=== PATIENT | male | born 1930 | race Caucasian/White ===

== ENCOUNTER 2016-11-27 21:36 | Inpatient (IN) | payer MEDICARE ==
--- NOTE | ~2016-11-27 | HP ---
History And Physical [place] [id number] [facility] [place]. [address] NAME: GLORIA LARA : [birth year] STATUS : ADM IN [facility]#: [id number] AGE: 86 ADM/REG DATE : 11/27/16 MR#: [id number] REPORT SERV DATE: 11/28/16 DICTATED BY: FINA CRAFT DATE: 11/28/16 REPORT STATUS : Draft TRANSCRIBED BY: MODL DATE: 11/28/16 DATE OF ADMISSION: 11/27/2016 CHIEF COMPLAINT: An 86-year-old male presenting with lethargy and cough. HISTORY OF PRESENT ILLNESS: The patient's history was obtained through careful interview with the patient, , son, and daughter coupled with review of [facility] medical records. The patient for about two weeks has had increasing lethargy, fatigue, confusion. He has become gradually more and more incoherent and have difficulty expressing himself with irritability. For the last week he has been losing bowel and bladder continence, and he is too weak to get up to use the bathroom or to ambulate on his own. He has been completely dependent for activities of daily living causing considerable stress on his family. Over these last two weeks he has had a cough that is productive, but the sputum has not been visualized by the family. There has been chest congestion, shortness of breath characterized by dyspnea on the least amount of exertion. No fevers or chills. The patient has had nausea constantly with two episodes of vomiting over the last week. He has generally kept a good appetite until the last 24 hours when he has had really no food intake at all. He has chronic neck arthritis seemingly worsened by this illness. He is complaining of pain, but unfortunately has been unable to localize the pain or describe its quality or severity to his family or to myself tonight. REVIEW OF SYSTEMS: Otherwise 14-point review of systems was obtained and was negative, although could question validity in light of the patient's inability to answer for himself. PAST MEDICAL HISTORY: 1. Coronary artery disease, status post CABG. 2. Aortic valve replacement with a tissue valve. 3. Chronic kidney disease, stage 3. Baseline creatinine of 1.3 to 1.8. 4. Diabetes. Hemoglobin A1c of 6.7 in September 2016. 5. Elevated cholesterol. 6. Hypertension. 7. Right lung granuloma. 8. Atrial fibrillation. 9. Nephrolithiasis. 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 11.Alzheimer's dementia. History And Physical [address] [address] NAME: GLORIA LARA : [birth year] STATUS : ADM IN [facility]#: [id number] AGE: 86 ADM/REG DATE : 11/27/16 MR#: [id number] REPORT SERV DATE: 11/28/16 DICTATED BY: FINA CRAFT DATE: 11/28/16 REPORT STATUS : Draft TRANSCRIBED BY: VALERY DATE: 11/28/16 PAST SURGICAL HISTORY: 1. Cholecystectomy. 2. Appendectomy. 3. CABG. 4. Aortic valve replacement in 2006 with tissue valve. 5. Right rotator cuff repair. 6. Toe repair. 7. Left foot surgery. 8. Left tear duct surgery. ALLERGIES: TO CODEINE AND PENICILLIN. SOCIAL HISTORY: Quit smoking in his 20s. No alcohol use. He has been to his for 62 years. 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 He now lives in [place], [place]. He has sitters that stay with him occasionally. He has a supportive son and daughter who live locally. No alcohol use. FAMILY HISTORY: Diabetes and coronary artery disease. CURRENT MEDICATIONS: 1. Dulcolax at bedtime. 2. Tums. 3. Pradaxa 75 mg p.o. b.i.d. 4. Aricept 10 mg p.o. b.i.d. 5. Cozaar 12.5 mg p.o. daily. 6. Namenda 10 mg p.o. b.i.d. 7. Seroquel 25 mg p.o. b.i.d. 8. Zoloft 25 mg p.o. b.i.d. PHYSICAL EXAMINATION: VITAL SIGNS: Temperature 98.5, pulse 121, blood pressure 118/90, respiratory rate 28, and O2 saturation 95% on room air. GENERAL: A toxic and very ill appearing male, but in no severe distress at this time. HEENT: Pupils equal, round, and reactive to light. No conjunctival pallor. No scleral icterus. Nares are patent. Oropharynx is clear of obstruction. Dry mucous membranes. NECK: Trachea midline. No thyromegaly. LYMPH: No cervical lymphadenopathy. No supraclavicular lymphadenopathy. RESPIRATORY: The patient has harsh rhonchi on examination that predominate. He will not participate in testing for egophony and he has crackles at the base of his lungs that I believe are more consistent with atelectasis changes as he does not seem to breathe very deeply on exam. He has no wheezes. No wet rales. He has a labored respiratory effort though. CARDIOVASCULAR: Tachycardic. Regular rhythm. No murmurs, rubs, or gallops. No current extremity edema is appreciated. ABDOMEN: Soft, nontender, and nondistended. Normal bowel sounds auscultated throughout. No hepatosplenomegaly. History And Physical [address] [address] NAME: GLORIA LARA : [birth year] STATUS : ADM IN [facility]#: [id number] AGE: 86 ADM/REG DATE : 11/27/16 MR#: [id number] REPORT SERV DATE: 11/28/16 DICTATED BY: FINA CRAFT DATE: 11/28/16 REPORT STATUS : Draft TRANSCRIBED BY: VALERY DATE: 11/28/16 DERMATOLOGIC: Warm and dry extremities. No pallor. No cyanosis. PSYCHIATRIC: A flat affect and irritable mood. He is alert, but often becomes quite lethargic. He does arouse easily to vocal stimuli, and he is disoriented x3 at this time. LABORATORY DATA: White blood cell count 11.7, hemoglobin 11, hematocrit 31, and platelets 200. Sodium 134, potassium 3.4, chloride 95, bicarb 29, BUN 27, creatinine 1.24, and glucose 141. Troponin negative. INR 2.0. Urine drug screen negative. Urinalysis negative for infection. STUDIES: 1. Chest x-ray by my own evaluation shows a fairly dense left lower lung pneumonia, a chronic right granuloma compared to old x-ray. 2. CT scan of the brain shows atrophy changes, but nothing acute. ASSESSMENT AND PLAN: 1. Sepsis with a white blood cell count of approximately 12, tachycardia, tachypnea, and an encephalopathy and evidence of pneumonia. Check blood cultures. Check lactic acid. Place on IV antibiotics. 2. Pneumonia. Check swallow studies to rule out aspiration risk. Check blood cultures. Place on IV antibiotics. 3. Functional paraplegia, now completely dependent for activities of daily living. Obtain a physical therapy evaluation and a case management evaluation as the patient may need to disposition to rehab. 4. Aortic valve replacement. Check an echocardiogram. 5. Chronic kidney disease, stage 3. 6. Diabetes. Hemoglobin A1c of 6.7. Place on sliding scale insulin. 7. Alzheimer's dementia. 8. Chronic atrial fibrillation, on Pradaxa. Check telemetry. KPL/MODL Fina Craft M.D. / [id number] CC: Karla Ramírez M.D.
--- NOTE | ~2016-11-27 | IDS ---
Interim Discharge Summary [facility] [address] [place]. [address] NAME: GLORIA LARA : [birth year] STATUS : ADM IN [facility]#: [id number] AGE: 86 ADM/REG DATE : 11/27/16 MR#: [id number] REPORT SERV DATE: 12/01/16 DICTATED BY: JOANNE MERINO DATE: 12/01/16 REPORT STATUS : Draft TRANSCRIBED BY: MODL DATE: 12/01/16 ADMISSION DATE: 11/27/2016 DISCHARGE DATE: PRINCIPAL DIAGNOSIS: Pneumonia, left lower lobe. SECONDARY DIAGNOSES: 1. Dysphagia. 2. Advanced dementia with febrile encephalopathy. 3. Recurrent fever. 4. Type 2 diabetes. 5. Generalized weakness. 6. Chronic kidney disease. 7. Atrial fibrillation. HISTORY OF PRESENT ILLNESS: Please see Dr. Conklin's dictation of 11/27/2016. HOSPITAL COURSE: Admitted with pneumonia and concern for systemic inflammatory response syndrome. Left lower lobe abnormality was noted. No other source was identified. Antibiotics were given. The patient actually responded well. He was more participatory in physical therapy, waking up, communicative, eating. However, on the sales promotion representative of 11/22/2016, the patient again became febrile and confused spiking high fevers and with drenching sweats. The son said that last night the patient had had increased agitation and gurgly sounds of his breathing. There was a concern this patient may have been aspirating even secretions with a resultant re-infection in the setting of ongoing antibiotic therapy; this would be a very grave prognosis. Urine cultures meanwhile were negative, no diarrhea had occurred. A modified barium swallow test was planned for 12/02/2016 but anticipating a high probability of failure and a hospice referral as a result. In either case, [facility] facility was anticipated, discharge plan per Dr. Vivar who will assume care starting tomorrow. ROWDY/VALERY Joanne Merino M.D. / [id number] CC: Karla Ramírez M.D.
--- NOTE | ~2016-11-27 | DS ---
Discharge Summary [place] [address] [place]. [address] NAME: GLORIA LARA : [birth year] STATUS : DIS IN PAT#: [id number] AGE: 86 ADM/REG DATE : 11/27/16 MR#: [id number] REPORT SERV DATE: 12/11/16 DICTATED BY: JESÚS MOREL DATE: 12/10/16 REPORT STATUS : Draft TRANSCRIBED BY: MODL DATE: 12/10/16 ADMISSION DATE: 11/27/2016 DISCHARGE DATE: 12/09/2016 REASON FOR ADMISSION: This is an 86-year-old male, who presented with lethargy and cough and chest x-ray. In ER, it had showed left lower lung pneumonia. DISCHARGE DIAGNOSES: 1. Severe sepsis due to pneumonia. 2. Chronic kidney disease. 3. Diabetes. 4. Atrial fibrillation. 5. Dysphagia, resolved. HOSPITAL COURSE: Please see discharge H and P from Dr. Esteban Vivar on 12/05/2016 to 12/09/2016 for full details on hospital stay. The patient's discharge arrangements to nursing home facility were completed on the 12/09/2016, and the patient was discharged. DISCHARGE CONDITION: Stable. DISCHARGE MEDICATIONS: 1. Allopurinol 100 mg p.o. daily. 2. Dulcolax 5 mg p.o. q.h.s. 3. Carvedilol 3.125 mg p.o. b.i.d. 4. Pradaxa 75 mg p.o. b.i.d. 5. Donepezil 10 mg p.o. b.i.d. 6. Florastor one capsule p.o. b.i.d. 7. Losartan 12.5 mg p.o. daily. 8. Namenda 10 mg p.o. b.i.d. 9. Seroquel 100 mg p.o. q.h.s. 10.Zoloft 25 mg p.o. b.i.d. 11.Spiriva 18 mcg capsule inhaled daily. DISCHARGE PLAN: The patient is discharged to nursing home facility. Follow up with primary care, Dr. Dao Sears, after rehab. QUENTIN/JENNIFERL Jesús Morel APN / [id number] CC: Discharge Summary [address] [place] [address] NAME: GLORIA LARA : [birth year] STATUS : DIS IN PAT#: [id number] AGE: 86 ADM/REG DATE : 11/27/16 MR#: [id number] REPORT SERV DATE: 12/11/16 DICTATED BY: JESÚS MOREL DATE: 12/10/16 REPORT STATUS : Draft TRANSCRIBED BY: MODL DATE: 12/10/16 Karla Ramírez M.D.
--- NOTE | ~2016-11-27 | DS ---
Discharge Summary [facility] [address] [facility] [place]. [address] NAME: GLORIA LARA : [birth year] STATUS : ADM IN PAT#: [id number] AGE: 86 ADM/REG DATE : 11/27/16 MR#: [id number] REPORT SERV DATE: 12/05/16 DICTATED BY: PHOEBE MAHMOOD DATE: 12/04/16 REPORT STATUS : Draft TRANSCRIBED BY: MODL DATE: 12/04/16 ADMISSION DATE: 11/27/2016 DISCHARGE DATE: 12/04/2016 HOSPITAL COURSE: This is an unfortunate 86-year-old male, known history of dementia, does not know what year it is, at baseline; history of CAD with CABG; aortic valve replacement, tissue biopsy, CKD, baseline about 1.3 to 1.8; diabetes, A1c 6.7; hyperlipidemia; hypertension; right lung granuloma; AFib; nephrolithiasis; Rodriguez's palsy; Alzheimer's dementia; cholecystectomy; appendectomy; CABG; AVR, 2006, tissue valve; rotator cuff repair; toe repair; left foot surgery. Patient has known history of smoking very minimally, came in, productive cough, nausea with emesis, sepsis severe due to hypoxic respiratory failure, did quite well, but then was determined to be dysphagic. The patient as a result had modified barium swallow again on the showed mechanical soft diet. Recommendation, gravy and nectar thickened liquids, deep penetration with thin liquids at the level of vocal folds, prolonged chewing, at risk for aspiration, but is able to protect airway. Needs oral care throughout the day, we will recommend as an outpatient. Patient's quality life is very poor. Had a fever spike despite being on Rocephin and azithromcin, switched over for better tamiko coverage with Levaquin, and tobramycin was added per Dr. Varma and take him off tobramycin and has done well since clinically. Off of oxygen now. White count improved. Patient's initial modified barium swallow study did not show any overt symptoms of aspiration, but very lethargic. Unclear of the accuracy of the test. Patient is amenable for discharge. Family would like patient before going to hospice to give every effort to rehabilitative facility; if does not, could consider possible hospice. Patient was significantly at one time sedated with delirium and backed off his Seroquel dosing. May have some restless legs syndrome, would want to guard against any pramipexole, ropinirole, associated sedation as a result. We will rule out for any gout. Give allopurinol at this time. If it were to worsen, consider possible steroids that may have an encephalopathic risk and possible x-ray to explain to the patient's family regarding this. Blood cultures, no growth to date despite his fever. Hopefully, he will be going to the facility today. He has failure to thrive as an outpatient given his very poor quality of life and advanced age of 86, comorbidities, consider possible hospice. Did a CT and it showed some moderate neural foraminal impingement at L4-L5. Family did not seem interested in any surgical intervention. No significant clinical manifestations that I am aware of nor were explained or presented to me. DISCHARGE MEDICATIONS: Include Dulcolax 5 p.o. at bedtime; Pradaxa 75 p.o. b.i.d.; donepezil 10 p.o. b.i.d.; losartan 12.5 p.o. daily, hold if less than 100 systolic; Namenda 10 p.o. b.i.d.; Seroquel 25 p.o. q.a.m., 75 p.o. at bedtime; Florastor one capsule p.o. b.i.d. for duration of antibiotic; Zoloft 25 p.o. b.i.d.; Spiriva 18 mcg capsule inhaled daily; Levaquin 750 p.o. daily for seven more days; allopurinol 100 p.o. daily with assistance going to the restroom and moving; carvedilol 3.125 p.o. b.i.d., hold if systolic less than 100. Discharge Summary [address] [address] NAME: GLORIA LARA : [birth year] STATUS : ADM IN [facility]#: [id number] AGE: 86 ADM/REG DATE : 11/27/16 MR#: [id number] REPORT SERV DATE: 12/05/16 DICTATED BY: PHOEBE MAHMOOD DATE: 12/04/16 REPORT STATUS : Draft TRANSCRIBED BY: MODL DATE: 12/04/16 CONSULTS: None. PROCEDURES: None. DISCHARGE DIAGNOSES: 1. Severe sepsis due to pneumonia. 2. Chronic kidney disease. 3. Diabetes. 4. Atrial fibrillation history. 5. Dysphagia, now improved. I would consider patient, given significant fall risk, not allowing for any full-dose Pradaxa, just continue Pradaxa dosing 75 b.i.d. All questions were answered. It took over 30 minutes to do. CHRISTIAN/VALERY Phoebe Mahmood DO / [id number] CC: DO Dao Shelton M.D.
--- NOTE | ~2016-11-27 | DS ---
Discharge Summary [address] [address] [place]. [address] NAME: GLORIA LARA : [birth year] STATUS : ADM IN PAT#: [id number] AGE: 86 ADM/REG DATE : 11/27/16 MR#: [id number] REPORT SERV DATE: 12/09/16 DICTATED BY: PHOEBE MAHMOOD DATE: 12/08/16 REPORT STATUS : Draft TRANSCRIBED BY: MODL DATE: 12/08/16 ADMISSION DATE: 11/27/2016 DISCHARGE DATE: ADDENDUM: The patient had delay in discharge due to family changing mind regarding destination of facility, would now like to go to [facility] over the weekend. I am trying to facilitate. New DC MAR will include: 1. Allopurinol 100 p.o. daily. 2. Dulcolax 5 p.o. at bedtime. 3. Carvedilol 3.125 p.o. b.i.d. 4. Pradaxa 75 p.o. b.i.d. Lower dose because of fall risk. Consider possible aspirin and Plavix as an outpatient. 5. Donepezil 10 p.o. b.i.d. 6. Levaquin 750 p.o. daily just for three more days. 7. Florastor 1 capsule p.o. b.i.d. for duration of antibiotic. 8. Losartan 12.5 p.o. daily. 9. Namenda 10 p.o. b.i.d. 10.Seroquel 100 p.o. at bedtime. 11.Zoloft 25 p.o. b.i.d. 12.Spiriva 18 mcg capsule inhaled daily. Assistance with moving. If has failure to thrive as an outpatient, consider hospice. The son who is the only son with limited family support is aware. See prior followup discharge instructions. All questions were answered. It took over 30 minutes in total to do. CHRISTIAN/VALERY Phoebe Mahmood DO / [id number] CC: DO Dao Shelton M.D.
[2016-11-27 20:42] LABS: ASCORBIC ACID (UR NOT ORDER) NEG (NEG); BILIRUBIN, URINE NEGATIVE (NEG); ER URINALYSIS TAT 0 Hrs 13 Mins; KETONE, URINE NEGATIVE (NEG); LEUKOCYTE ESTERASE(NOT OR NEG (NEG); NITRITE (URINE) NEG (NEG); WBC (NOT ORDERED) (RFLEX) 1 (0-5)
[2016-11-27 21:27] LABS: BASOPHILS 0.1 %; BASOPHILS ABSOLUTE 0.01 10/3/uL (0.0-0.16); EOSINOPHILS 0.3 %; EOSINOPHILS ABSOLUTE 0.04 10/3/uL (0.0-0.53); HEMOGLOBIN 10.9 g/dL (13.6-17.8); IMMATURE GRANULOCYTES 0.3 %; IMMATURE GRANULOCYTES ABSOLUTE 0.04 10/3/uL (0.0-0.11); LYMPHOCYTES 10.4 %; LYMPHOCYTES ABSOLUTE 1.22 10/3/uL (0.67-4.30); MEAN CORPUSCULAR HEMOGLOB 32.8 pg (26.0-34.0); MEAN CORPUSCULAR VOLUME 93.7 fL (80-100); MEAN PLATELET VOLUME 9.1 fL (9.2-13.0); MONOCYTES ABSOLUTE 1.41 10/3/uL (0.21-1.20); NEUTROPHILS 76.9 %; PLATELET COUNT 200 10/3/uL (150-400); RBC DISTRIBUTION WIDTH 12.1 % (12.0-16.0); RED CELL COUNT 3.32 10/6/uL (4.7-6.1)
[2016-11-27 21:28] LABS: HEMATOCRIT 31.1 % (40.0-51.0); MANUAL DIFF NO %; WHITE BLOOD CELLS 11.7 10/3/uL (4.5-10.5)
[2016-11-27 21:37] LABS: PARTIAL THROMBO TIME 65.6 SEC (22.5-37.2)
[2016-11-27 21:39] LABS: AMPHETAMINES (NOT ORD) NEG (NEG); BARBITURATES (NOT ORDERED NEG (NEG); BENZODIAZEPINES (NOT ORD) NEG (NEG); CANNABINOIDS (THC) NEG (NEG); COCAINE (NOT ORDERED) NEG (NEG); OPIATES NEG (NEG); PHENCYCLIDINE(PCP) NEG (NEG); PROTIME (NOT ORD) 22.8 SEC (12.0-14.5); TRICYCLICS NEG (NEG)
[2016-11-27 21:47] LABS: CALCIUM, SERUM 8.3 MG/DL (8.5-10.4); CHEST PAIN PROFILE TAT 0 Hrs 25 Mins; CHLORIDE, SERUM 95 MMOL/L (96-112); CO2 (CARBON DIOXIDE) 29 MMOL/L (24-34); POTASSIUM, SERUM 3.4 MMOL/L (3.5-5.3); SODIUM, SERUM 134 MMOL/L (135-148); TROPONIN I <0.02 NG/ML (<0.05)
[2016-11-27 21:49] LABS: ACETAMINOPHEN LEVEL (TYLENOL) < 2.0 MCG/ML (10.0-20.0); ALCOHOL < 10 MG/DL (0); BUN (BLOOD UREA NITROGEN) 27 MG/DL (6-23); CREATININE 1.24 MG/DL (0.70-1.30); GFR AFRICAN AMERICAN 60 ML/MIN (>=60); GFR NON AFRICAN AMERICAN 52 ML/MIN (>=60); GLUCOSE, SERUM 141 MG/DL (60-99); SALICYLATE < 1.7 MG/DL (-)
[2016-11-27] MEDS ORDERED: NAMENDA10 MG PO (23:13)
[2016-11-27] MEDS ORDERED: ARICEPT10 PO (23:13)
[2016-11-27] MEDS ORDERED: COZ25 PO (23:13)
[2016-11-27] MEDS ORDERED: PRADAXA75 MG PO (23:14)
[2016-11-27] MEDS ORDERED: TUMSROLL PO (23:14)
[2016-11-27] MEDS ORDERED: BIST PO (23:14)
[2016-11-27] MEDS ORDERED: SEROQUEL25 PO (23:14)
[2016-11-27] MEDS ORDERED: ZOLOFT25 MG PO (23:14)
[2016-11-28 07:24] LABS: BASOPHILS 0.1 %; BASOPHILS ABSOLUTE 0.01 10/3/uL (0.0-0.16); HEMATOCRIT 31.4 % (40.0-51.0); HEMOGLOBIN 10.8 g/dL (13.6-17.8); IMMATURE GRANULOCYTES 0.3 %; IMMATURE GRANULOCYTES ABSOLUTE 0.03 10/3/uL (0.0-0.11); LYMPHOCYTES 10.9 %; LYMPHOCYTES ABSOLUTE 1.09 10/3/uL (0.67-4.30); MEAN CORPUS HGB CONC 34.4 g/dL (32.0-36.0); MEAN CORPUSCULAR HEMOGLOB 32.5 pg (26.0-34.0); MEAN CORPUSCULAR VOLUME 94.6 fL (80-100); MEAN PLATELET VOLUME 9.1 fL (9.2-13.0); MONOCYTES 11.1 %; MONOCYTES ABSOLUTE 1.11 10/3/uL (0.21-1.20); NEUTROPHILS 76.6 %; NEUTROPHILS ABSOLUTE 7.63 10/3/uL (2.02-8.40); PLATELET COUNT 219 10/3/uL (150-400); RBC DISTRIBUTION WIDTH 11.9 % (12.0-16.0); RED CELL COUNT 3.32 10/6/uL (4.7-6.1)
[2016-11-28 07:25] LABS: MANUAL DIFF NO %
[2016-11-28 07:30] LABS: PROTIME (NOT ORD) 22.7 SEC (12.0-14.5)
[2016-11-28 07:31] LABS: PARTIAL THROMBO TIME 66.6 SEC (22.5-37.2)
[2016-11-28 07:43] LABS: ALKALINE PHOSPHATASE 67 U/L (45-117); CALCIUM, SERUM 8.3 MG/DL (8.5-10.4); CHLORIDE, SERUM 98 MMOL/L (96-112); CO2 (CARBON DIOXIDE) 27 MMOL/L (24-34); CPK 68 U/L (0-200); CREATININE 1.05 MG/DL (0.70-1.30); GFR AFRICAN AMERICAN 73 ML/MIN (>=60); GFR NON AFRICAN AMERICAN 63 ML/MIN (>=60); GLUCOSE, SERUM 129 MG/DL (60-99); POTASSIUM, SERUM 3.4 MMOL/L (3.5-5.3); SGOT(AST) 14 U/L (5-40); SGPT(ALT) 18 U/L (5-65); SODIUM, SERUM 136 MMOL/L (135-148); TOTAL PROTEIN 6.4 G/DL (6.0-8.5); TROPONIN I <0.02 NG/ML (<0.05)
[2016-11-28 07:44] LABS: A/G RATIO 0.5 (0.7-1.9); ALBUMIN 2.2 G/DL (3.5-5.0); BUN (BLOOD UREA NITROGEN) 23 MG/DL (6-23); CK-MB 1.2 NG/ML; GLOBULIN 4.2 G/DL (2.5-4.1)
[2016-11-28 09:09] LABS: PROCALCITONIN 0.06 ng/mL (<0.5)
[2016-11-29 06:11] LABS: BASOPHILS 0.1 %; BASOPHILS ABSOLUTE 0.01 10/3/uL (0.0-0.16); EOSINOPHILS 0.8 %; EOSINOPHILS ABSOLUTE 0.08 10/3/uL (0.0-0.53); HEMATOCRIT 29.2 % (40.0-51.0); IMMATURE GRANULOCYTES 0.2 %; IMMATURE GRANULOCYTES ABSOLUTE 0.02 10/3/uL (0.0-0.11); LYMPHOCYTES 11.6 %; LYMPHOCYTES ABSOLUTE 1.17 10/3/uL (0.67-4.30); MEAN CORPUS HGB CONC 34.2 g/dL (32.0-36.0); MEAN CORPUSCULAR HEMOGLOB 32.2 pg (26.0-34.0); MEAN CORPUSCULAR VOLUME 93.9 fL (80-100); MEAN PLATELET VOLUME 9.3 fL (9.2-13.0); MONOCYTES 12.2 %; MONOCYTES ABSOLUTE 1.23 10/3/uL (0.21-1.20); NEUTROPHILS 75.1 %; PLATELET COUNT 226 10/3/uL (150-400); RBC DISTRIBUTION WIDTH 12.2 % (12.0-16.0); RED CELL COUNT 3.11 10/6/uL (4.7-6.1); WHITE BLOOD CELLS 10.1 10/3/uL (4.5-10.5)
[2016-11-29 06:14] LABS: MANUAL DIFF NO %
[2016-11-29 06:24] LABS: BUN (BLOOD UREA NITROGEN) 20 MG/DL (6-23); CALCIUM, SERUM 8.3 MG/DL (8.5-10.4); CHLORIDE, SERUM 99 MMOL/L (96-112); CO2 (CARBON DIOXIDE) 25 MMOL/L (24-34); CREATININE 1.14 MG/DL (0.70-1.30); GFR AFRICAN AMERICAN 66 ML/MIN (>=60); GFR NON AFRICAN AMERICAN 57 ML/MIN (>=60); GLUCOSE, SERUM 149 MG/DL (60-99); POTASSIUM, SERUM 3.4 MMOL/L (3.5-5.3); SODIUM, SERUM 136 MMOL/L (135-148)
[2016-11-30 05:39] LABS: CALCIUM IONIZED 4.79 MG/DL (3.80-4.80)
[2016-11-30 05:42] LABS: BASOPHILS 0.1 %; BASOPHILS ABSOLUTE 0.01 10/3/uL (0.0-0.16); EOSINOPHILS 1.6 %; EOSINOPHILS ABSOLUTE 0.14 10/3/uL (0.0-0.53); IMMATURE GRANULOCYTES 0.1 %; IMMATURE GRANULOCYTES ABSOLUTE 0.01 10/3/uL (0.0-0.11); LYMPHOCYTES ABSOLUTE 1.16 10/3/uL (0.67-4.30); MEAN CORPUS HGB CONC 34.5 g/dL (32.0-36.0); MEAN CORPUSCULAR HEMOGLOB 32.6 pg (26.0-34.0); MEAN CORPUSCULAR VOLUME 94.5 fL (80-100); MEAN PLATELET VOLUME 8.7 fL (9.2-13.0); MONOCYTES 13.3 %; MONOCYTES ABSOLUTE 1.19 10/3/uL (0.21-1.20); NEUTROPHILS 71.9 %; NEUTROPHILS ABSOLUTE 6.44 10/3/uL (2.02-8.40); PLATELET COUNT 209 10/3/uL (150-400); RBC DISTRIBUTION WIDTH 12.3 % (12.0-16.0); RED CELL COUNT 3.07 10/6/uL (4.7-6.1); RETICULOCYTE COUNT ABSOLUTE 59.9 10/3/uL (20.2-119.8)
[2016-11-30 05:47] LABS: MANUAL DIFF NO %
[2016-11-30 06:03] LABS: AMMONIA < 10 UMOL/L (11-32)
[2016-11-30 06:20] LABS: % IRON SAT 16 % (20-50); BUN (BLOOD UREA NITROGEN) 17 MG/DL (6-23); CALCIUM, SERUM 8.6 MG/DL (8.5-10.4); CHLORIDE, SERUM 98 MMOL/L (96-112); CO2 (CARBON DIOXIDE) 29 MMOL/L (24-34); CREATININE 1.13 MG/DL (0.70-1.30); FERRITIN 597 NG/ML (26-388); GFR AFRICAN AMERICAN 67 ML/MIN (>=60); GFR NON AFRICAN AMERICAN 58 ML/MIN (>=60); GLUCOSE, SERUM 133 MG/DL (60-99); IRON BINDING CAPACITY 136 MCG/DL (250-450); IRON, SERUM 22 MCG/DL (35-150); POTASSIUM, SERUM 3.5 MMOL/L (3.5-5.3); SODIUM, SERUM 137 MMOL/L (135-148)
[2016-11-30 06:25] LABS: PROCALCITONIN 0.06 ng/mL (<0.5)
[2016-12-01 13:35] LABS: ASCORBIC ACID (UR NOT ORDER) NEG (NEG); BILIRUBIN, URINE NEGATIVE (NEG); KETONE, URINE NEGATIVE (NEG); LEUKOCYTE ESTERASE(NOT OR NEG (NEG); WBC (NOT ORDERED) (RFLEX) 1 (0-5)
[2016-12-02 06:29] LABS: BASOPHILS 0.1 %; BASOPHILS ABSOLUTE 0.01 10/3/uL (0.0-0.16); EOSINOPHILS ABSOLUTE 0.18 10/3/uL (0.0-0.53); HEMATOCRIT 27.7 % (40.0-51.0); HEMOGLOBIN 9.7 g/dL (13.6-17.8); IMMATURE GRANULOCYTES 0.3 %; IMMATURE GRANULOCYTES ABSOLUTE 0.03 10/3/uL (0.0-0.11); LYMPHOCYTES 12.3 %; LYMPHOCYTES ABSOLUTE 1.11 10/3/uL (0.67-4.30); MEAN CORPUSCULAR HEMOGLOB 32.8 pg (26.0-34.0); MEAN CORPUSCULAR VOLUME 93.6 fL (80-100); MEAN PLATELET VOLUME 9.1 fL (9.2-13.0); MONOCYTES 11.1 %; NEUTROPHILS 74.2 %; PLATELET COUNT 219 10/3/uL (150-400); RBC DISTRIBUTION WIDTH 12.1 % (12.0-16.0); RED CELL COUNT 2.96 10/6/uL (4.7-6.1)
[2016-12-02 06:30] LABS: MANUAL DIFF NO %
[2016-12-02 06:44] LABS: BUN (BLOOD UREA NITROGEN) 20 MG/DL (6-23); CHLORIDE, SERUM 97 MMOL/L (96-112); CO2 (CARBON DIOXIDE) 25 MMOL/L (24-34); CREATININE 1.14 MG/DL (0.70-1.30); GFR AFRICAN AMERICAN 66 ML/MIN (>=60); GFR NON AFRICAN AMERICAN 57 ML/MIN (>=60); GLUCOSE, SERUM 122 MG/DL (60-99); POTASSIUM, SERUM 3.7 MMOL/L (3.5-5.3); SODIUM, SERUM 135 MMOL/L (135-148); TOBRAMYCIN, RANDOM 3.6 MCG/ML (5.0-12.0)
[2016-12-02 07:30] LABS: SED RATE 110 MM/HR (0-15)
[2016-12-02 16:13] LABS: FOLATE 10.6 NG/ML (>5.2)
[2016-12-02 17:38] LABS: WBC (NOT ORDERED) (RFLEX) 0 (0-5)
[2016-12-02 17:43] LABS: ASCORBIC ACID (UR NOT ORDER) NEG (NEG); BILIRUBIN, URINE NEGATIVE (NEG); KETONE, URINE NEGATIVE (NEG); LEUKOCYTE ESTERASE(NOT OR NEG (NEG)
[2016-12-06 12:56] LABS: BASOPHILS 0.1 %; BASOPHILS ABSOLUTE 0.01 10/3/uL (0.0-0.16); EOSINOPHILS 1.8 %; EOSINOPHILS ABSOLUTE 0.14 10/3/uL (0.0-0.53); HEMATOCRIT 29.4 % (40.0-51.0); HEMOGLOBIN 10.1 g/dL (13.6-17.8); IMMATURE GRANULOCYTES 0.3 %; IMMATURE GRANULOCYTES ABSOLUTE 0.02 10/3/uL (0.0-0.11); LYMPHOCYTES 13.1 %; LYMPHOCYTES ABSOLUTE 0.99 10/3/uL (0.67-4.30); MEAN CORPUS HGB CONC 34.4 g/dL (32.0-36.0); MEAN CORPUSCULAR HEMOGLOB 32.5 pg (26.0-34.0); MEAN CORPUSCULAR VOLUME 94.5 fL (80-100); MEAN PLATELET VOLUME 8.6 fL (9.2-13.0); MONOCYTES 13.9 %; MONOCYTES ABSOLUTE 1.05 10/3/uL (0.21-1.20); NEUTROPHILS 70.8 %; NEUTROPHILS ABSOLUTE 5.37 10/3/uL (2.02-8.40); PLATELET COUNT 245 10/3/uL (150-400); RBC DISTRIBUTION WIDTH 12.1 % (12.0-16.0); RED CELL COUNT 3.11 10/6/uL (4.7-6.1); WHITE BLOOD CELLS 7.6 10/3/uL (4.5-10.5)
[2016-12-06 12:57] LABS: MANUAL DIFF NO %
[2016-12-06 13:04] LABS: INTERNATIONAL NORMAL RATI 1.7 UNITS (-); PROTIME (NOT ORD) 19.9 SEC (12.0-14.5)
[2016-12-06 13:07] LABS: BUN (BLOOD UREA NITROGEN) 20 MG/DL (6-23); CALCIUM, SERUM 8.4 MG/DL (8.5-10.4); CHLORIDE, SERUM 99 MMOL/L (96-112); CO2 (CARBON DIOXIDE) 32 MMOL/L (24-34); CREATININE 1.28 MG/DL (0.70-1.30); GFR AFRICAN AMERICAN 58 ML/MIN (>=60); GFR NON AFRICAN AMERICAN 50 ML/MIN (>=60); GLUCOSE, SERUM 126 MG/DL (60-99); PHOSPHORUS, SERUM 4.2 MG/DL (2.5-4.5); POTASSIUM, SERUM 3.7 MMOL/L (3.5-5.3); SODIUM, SERUM 139 MMOL/L (135-148)
[2016-12-07 06:12] LABS: BASOPHILS 0.1 %; BASOPHILS ABSOLUTE 0.01 10/3/uL (0.0-0.16); EOSINOPHILS 2.5 %; HEMATOCRIT 27.4 % (40.0-51.0); HEMOGLOBIN 9.4 g/dL (13.6-17.8); IMMATURE GRANULOCYTES 0.5 %; IMMATURE GRANULOCYTES ABSOLUTE 0.04 10/3/uL (0.0-0.11); LYMPHOCYTES 14.2 %; LYMPHOCYTES ABSOLUTE 1.15 10/3/uL (0.67-4.30); MEAN CORPUS HGB CONC 34.3 g/dL (32.0-36.0); MEAN CORPUSCULAR HEMOGLOB 32.4 pg (26.0-34.0); MEAN CORPUSCULAR VOLUME 94.5 fL (80-100); MEAN PLATELET VOLUME 8.7 fL (9.2-13.0); MONOCYTES ABSOLUTE 1.05 10/3/uL (0.21-1.20); NEUTROPHILS 69.7 %; NEUTROPHILS ABSOLUTE 5.64 10/3/uL (2.02-8.40); PLATELET COUNT 216 10/3/uL (150-400); RBC DISTRIBUTION WIDTH 12.3 % (12.0-16.0); WHITE BLOOD CELLS 8.1 10/3/uL (4.5-10.5)
[2016-12-07 06:19] LABS: MANUAL DIFF NO %
[2016-12-07 06:20] LABS: BUN (BLOOD UREA NITROGEN) 20 MG/DL (6-23); CALCIUM, SERUM 8.2 MG/DL (8.5-10.4); CHLORIDE, SERUM 98 MMOL/L (96-112); CO2 (CARBON DIOXIDE) 33 MMOL/L (24-34); CREATININE 1.22 MG/DL (0.70-1.30); GFR AFRICAN AMERICAN 61 ML/MIN (>=60); GFR NON AFRICAN AMERICAN 53 ML/MIN (>=60); GLUCOSE, SERUM 120 MG/DL (60-99); PHOSPHORUS, SERUM 3.7 MG/DL (2.5-4.5); POTASSIUM, SERUM 3.7 MMOL/L (3.5-5.3); SODIUM, SERUM 138 MMOL/L (135-148)
[2016-12-08 07:25] LABS: BAND NEUTROPHILS 2 %; EOSINOPHILS 1 %; HEMATOCRIT 28.6 % (40.0-51.0); HEMOGLOBIN 9.7 g/dL (13.6-17.8); LYMPHOCYTES 16 %; MEAN CORPUSCULAR HEMOGLOB 31.9 pg (26.0-34.0); MEAN CORPUSCULAR VOLUME 94.1 fL (80-100); MONOCYTES 6 %; PLATELET ESTIMATE ADQ (ADEQUATE); RBC MORPHOLOGY NORM (NORMAL); RED CELL COUNT 3.04 10/6/uL (4.7-6.1); SEGMENTED NEUTROPHIL (0) 75 %; TOTAL NUCLEATED CELLS 100; WHITE BLOOD CELLS 7.4 10/3/uL (4.5-10.5)
[2016-12-08 07:26] LABS: MANUAL DIFF YES %; MEAN CORPUS HGB CONC 33.9 g/dL (32.0-36.0); PLATELET COUNT 234 10/3/uL (150-400)
[2016-12-08 08:24] LABS: CALCIUM, SERUM 8.6 MG/DL (8.5-10.4); CHLORIDE, SERUM 99 MMOL/L (96-112); CO2 (CARBON DIOXIDE) 33 MMOL/L (24-34); CREATININE 1.22 MG/DL (0.70-1.30); GFR AFRICAN AMERICAN 61 ML/MIN (>=60); GFR NON AFRICAN AMERICAN 53 ML/MIN (>=60); GLUCOSE, SERUM 104 MG/DL (60-99); PHOSPHORUS, SERUM 3.7 MG/DL (2.5-4.5); POTASSIUM, SERUM 3.7 MMOL/L (3.5-5.3); SODIUM, SERUM 139 MMOL/L (135-148)
[2016-12-08 08:25] LABS: BUN (BLOOD UREA NITROGEN) 16 MG/DL (6-23)
[2016-12-09 05:42] LABS: BASOPHILS 0.2 %; BASOPHILS ABSOLUTE 0.02 10/3/uL (0.0-0.16); EOSINOPHILS 2.1 %; EOSINOPHILS ABSOLUTE 0.18 10/3/uL (0.0-0.53); HEMATOCRIT 28.4 % (40.0-51.0); HEMOGLOBIN 9.6 g/dL (13.6-17.8); IMMATURE GRANULOCYTES 0.5 %; IMMATURE GRANULOCYTES ABSOLUTE 0.04 10/3/uL (0.0-0.11); LYMPHOCYTES 15.8 %; LYMPHOCYTES ABSOLUTE 1.34 10/3/uL (0.67-4.30); MEAN CORPUS HGB CONC 33.8 g/dL (32.0-36.0); MEAN CORPUSCULAR VOLUME 94.7 fL (80-100); MEAN PLATELET VOLUME 8.8 fL (9.2-13.0); MONOCYTES 11.5 %; MONOCYTES ABSOLUTE 0.97 10/3/uL (0.21-1.20); NEUTROPHILS 69.9 %; NEUTROPHILS ABSOLUTE 5.91 10/3/uL (2.02-8.40); PLATELET COUNT 231 10/3/uL (150-400); RBC DISTRIBUTION WIDTH 12.4 % (12.0-16.0); WHITE BLOOD CELLS 8.5 10/3/uL (4.5-10.5)
[2016-12-09 05:44] LABS: MANUAL DIFF NO %
[2016-12-09 05:58] LABS: BUN (BLOOD UREA NITROGEN) 19 MG/DL (6-23); CALCIUM, SERUM 8.5 MG/DL (8.5-10.4); CHLORIDE, SERUM 100 MMOL/L (96-112); CO2 (CARBON DIOXIDE) 29 MMOL/L (24-34); CREATININE 1.38 MG/DL (0.70-1.30); GFR AFRICAN AMERICAN 53 ML/MIN (>=60); GFR NON AFRICAN AMERICAN 45 ML/MIN (>=60); GLUCOSE, SERUM 107 MG/DL (60-99); PHOSPHORUS, SERUM 3.7 MG/DL (2.5-4.5); POTASSIUM, SERUM 3.9 MMOL/L (3.5-5.3); SODIUM, SERUM 139 MMOL/L (135-148)
== END 2016-12-09 14:56 | DRG 871 ==
LOC: ER 21:36 → 1SO 22:57
PROVIDERS: Emergency Medicine; Hospitalist; Internal Medicine
DX: A41.9 Sepsis, unspecified organism (principal); G93.41 Metabolic encephalopathy; J18.9 Pneumonia, unspecified organism; E11.22 Type 2 diabetes mellitus with diabetic chronic kidney disease; I48.2 Chronic atrial fibrillation; G30.0 Alzheimer's disease with early onset; N18.3 Chronic kidney disease, stage 3 (moderate); R13.10 Dysphagia, unspecified; F02.80 Dementia in other diseases classified elsewhere, unspecified severity, without behavioral disturbance, psychotic disturbance, mood disturbance, and anxiety; Z66 Do not resuscitate; E66.9 Obesity, unspecified; Z68.37 Body mass index [BMI] 37.0-37.9, adult; G51.0 Bell's palsy; D64.9 Anemia, unspecified; F44.4 Conversion disorder with motor symptom or deficit; E78.5 Hyperlipidemia, unspecified; R32 Unspecified urinary incontinence; R15.9 Full incontinence of feces; I12.9 Hypertensive chronic kidney disease with stage 1 through stage 4 chronic kidney disease, or unspecified chronic kidney disease; I25.10 Atherosclerotic heart disease of native coronary artery without angina pectoris; R65.20 Severe sepsis without septic shock; Z79.01 Long term (current) use of anticoagulants; Z79.899 Other long term (current) drug therapy; Z87.891 Personal history of nicotine dependence; Z95.1 Presence of aortocoronary bypass graft; Z95.2 Presence of prosthetic heart valve; Z87.442 Personal history of urinary calculi; Z88.0 Allergy status to penicillin; Z88.5 Allergy status to narcotic agent
CPT/HCPCS: 70450; 71010; 72131; 74230; 80048; 80053; 80200; 80305; 80307; 81001; 82140; 82330; 82550; 82553; 82607; 82728; 82746; 82962; 83540; 83550; 83605; 83735; 83880; 84100; 84145; 84443; 84484; 85025; 85045; 85610; 85652; 85730; 87040; 87070; 87205; 87449; 87493; 87493-59; 92610-GN; 92611-GN; 93005; 94640; 97110-GP; 97162-GP; 97164-GP; 97530-GP; 99285; A9270-GY; G8978-CL-GP; G8978-CM-GP; G8979-CK-GP; G8979-CL-GP; J0456; J1956; J3260; J3486